=== PATIENT | female | born 1995 | race Hispanic/Latino ===

== ENCOUNTER 2017-05-23 21:51 | Emergency (ER) | payer BC ==
[2017-05-23 22:02] VITALS: BMI 21.1
[2017-05-23 22:04] VITALS: BP 132/76; PULSE 64; RESP 16; TEMP 97.1; O2SAT 98
--- NOTE | 2017-05-23 22:45 | ED PDOC ---
HPI: Eye Injury/Pain Time Seen by Provider: 05/23/17 22:43 Chief Complaint (Nursing): Eye Problem Chief Complaint (Provider): eye drainage History Per: Patient History/Exam Limitations: no limitations Onset/Duration Of Symptoms: Days (2), Worse Since Current Symptoms Are (Timing): Still Present Injury To Eye?: No Severity: Moderate Pain Scale Rating Of: 7 Eye: 1 - draainge-yellow, reddness swelilng to lid pain with EOMOI, vision is not blurry, no photphobia no vision loss. Quality: Burning Wears Contact Lens?: No Associated Symptoms: Swelling, FB Sensation, Itching, Discharge From Eye Past Medical History Reviewed: Historical Data, Nursing Documentation, Vital Signs Vital Signs: Last Vital Signs Temp 97.1 F L 05/23/17 22:02 Pulse 64 05/23/17 22:02 Resp 16 05/23/17 22:02 BP 132/76 05/23/17 22:02 Pulse Ox 98 05/23/17 22:02 - Medical History PMH: No Chronic Diseases - Family History Family History: States: No Known Family Hx - Home Medications Home Medications: Ambulatory Orders Medication Instructions Recorded Polymyxin/Trimethoprim Sulfate 100 drop OD BID #1 bottle 05/23/17 [Polytrim Ophth Soln] - Allergies Allergies/Adverse Reactions: Allergies Allergy/AdvReac Type Severity Reaction Status Date / Time No Known Allergies Allergy Verified 05/23/17 22:01 Review of Systems ROS Statement: Except As Marked, All Systems Reviewed And Found Negative Eyes: Positive for: Pain, Conjunctivae Inflammation Physical Exam - Reviewed Nursing Documentation Reviewed: Yes Vital Signs Reviewed: Yes - Physical Exam Appears: Positive for: Well, Non-toxic, No Acute Distress Skin: Positive for: Normal Color, Warm, DRY Eye Exam: Positive for: EOMI, PERRL, Other (swelling to right eye with excessive draiange and itching with redness lid inversion: no FB noted. ) Neurologic/Psych: Positive for: Alert, Oriented - ECG O2 Sat by Pulse Oximetry: 98 Medical Decision Making Medical Decision Making: dx: bacterial conjunctivitis tx: polytrim f.u with pmd. Disposition - Clinical Impression Clinical Impression: Conjunctivitis - Patient ED Disposition Is Patient to be Admitted: No Counseled Patient/Family Regarding: Studies Performed, Diagnosis, Need For Followup, Rx Given - Disposition Disposition: Routine/Home Disposition Time: 22:46 Condition: STABLE Prescriptions: Polymyxin/Trimethoprim Sulfate [Polytrim Ophth Soln] 100 drop OD BID #1 bottle Instructions: Conjunctivitis (ED) Forms: [facility] ([place]ic), [facility] ED School/Work Excuse
== END 2017-05-23 22:56 | disposition home or self-care (01) ==
LOC: H.ER 21:51
DX: H10.9 Unspecified conjunctivitis (principal)